=== PATIENT | male | born 1990 | race Caucasian/White ===

== ENCOUNTER 2019-05-12 12:06 | Emergency (ER) | payer SELFPAY ==
[~2019-05-12] VITALS: Ht 185.4 cm; Wt 81.2 kg
[2019-05-12 12:36] VITALS: BP 134/68
== END 2019-05-12 14:04 | disposition home or self-care (01) ==
LOC: ER 12:10
DX: L05.91 Pilonidal cyst without abscess (principal)

== ENCOUNTER 2019-06-30 22:46 | Emergency (ER) | payer SELFPAY ==
[~2019-06-30] VITALS: Ht 185.4 cm; Wt 81.6 kg
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
[2019-06-30] MEDS ORDERED: KETOROLAC TROMETHAMINE INJ 60 MG/2 ML VIAL IM ONE ×2 (23:29→23:30)
--- NOTE | 2019-06-30 23:30 | NUR ---
PT TO RADIOLOGY ON WHEELCHAIR
--- NOTE | 2019-07-01 00:32 | NUR ---
Patient discharged to home in stable condition. Written and verbal after care instructions given. Patient verbalizes understanding of instruction. Pt ambulatory with a steady gait
[2019-07-01 00:33] VITALS: BP 132/80
== END 2019-07-01 00:34 | disposition home or self-care (01) ==
LOC: ER 22:48
DX: M54.2 Cervicalgia (principal); M54.6 Pain in thoracic spine; F17.200 Nicotine dependence, unspecified, uncomplicated; V49.59XA Passenger injured in collision with other motor vehicles in traffic accident, initial encounter; Y93.89 Activity, other specified; Y92.488 Other paved roadways as the place of occurrence of the external cause; Y99.8 Other external cause status
CPT/HCPCS: 72050; 72070; 96372; 99283; 99406; J1885